=== PATIENT | female | born 1995 | race Two or more races ===

== ENCOUNTER 2024-03-05 14:42 | Emergency (ER) | payer OTHER ==
[~2024-03-05] VITALS: Ht 180.3 cm; Wt 127.0 kg
[2024-03-05] MEDS ORDERED: MAXITROL EYE DRO5 ML OP (19:56)
== END 2024-03-05 20:12 | disposition home or self-care (01) ==
LOC: ER 14:44
DX: H57.10 Ocular pain, unspecified eye (principal)